=== PATIENT | female | born 1995 | race Caucasian/White ===

== ENCOUNTER → 2016-12-14 | Outpatient (CLI) | payer OTHER ==
[~2016-12-14] MED LIST: LEVE500T53 PO; LORA0.5T PO
== END | disposition home or self-care (01) ==
LOC: CARD 13:11
PROVIDERS: ATTEND Psychiatry & Neurology Neurology
DX: R56.9 Unspecified convulsions (principal)
CPT/HCPCS: 95819

== ENCOUNTER 2018-07-17 11:48 | Emergency (ER) | payer OTHER ==
[~2018-07-17] VITALS: Ht 175.3 cm; Wt 113.2 kg
[2018-07-17 11:50] VITALS: BP 149/68
[2018-07-17] MEDS ORDERED: LIDOCAINE-MPF 1%, 5ML ONE (12:03)
[2018-07-17] MEDS ORDERED: LIDOCAINE-MPF 1%, 5ML INFIL ONE (12:30)
== END 2018-07-17 13:24 | disposition home or self-care (01) ==
LOC: ED 12:48
DX: L05.01 Pilonidal cyst with abscess (principal); G40.909 Epilepsy, unspecified, not intractable, without status epilepticus
CPT/HCPCS: 10080; 99284

== ENCOUNTER 2018-07-19 13:45 | Emergency (ER) | payer SELFPAY ==
[~2018-07-19] VITALS: Ht 175.3 cm; Wt 115.0 kg
[2018-07-19 13:49] VITALS: BP 126/73
== END 2018-07-19 14:51 | disposition home or self-care (01) ==
LOC: ED 14:45
DX: L05.01 Pilonidal cyst with abscess (principal); G40.909 Epilepsy, unspecified, not intractable, without status epilepticus
CPT/HCPCS: 99283

== ENCOUNTER 2018-07-21 17:12 | Emergency (ER) | payer SELFPAY ==
[~2018-07-21] VITALS: Ht 175.3 cm; Wt 115.2 kg
[2018-07-21 17:34] VITALS: BP 134/80
== END 2018-07-21 18:12 | disposition home or self-care (01) ==
LOC: ED 18:08
DX: L05.01 Pilonidal cyst with abscess (principal); G40.909 Epilepsy, unspecified, not intractable, without status epilepticus
CPT/HCPCS: 99282; 99283

== ENCOUNTER 2018-12-16 19:42 | Emergency (ER) | payer SELFPAY ==
[~2018-12-16] VITALS: Ht 175.3 cm; Wt 112.0 kg
[2018-12-16 19:53] VITALS: BP 120/85
[2018-12-16] MEDS ORDERED: ALBUTEROL SULFATE 2.5 MG/3 ML NPPB ONE (20:30)
== END 2018-12-16 21:18 | disposition home or self-care (01) ==
LOC: ED 20:53
DX: H60.501 Unspecified acute noninfective otitis externa, right ear (principal); J15.9 Unspecified bacterial pneumonia; G40.909 Epilepsy, unspecified, not intractable, without status epilepticus
CPT/HCPCS: 71046; 94640; 99283; J7512; J7613

== ENCOUNTER 2019-09-18 12:31 | Emergency (ER) | payer SELFPAY ==
[~2019-09-18] VITALS: Ht 175.3 cm; Wt 112.0 kg
[2019-09-18 12:39] VITALS: BP 124/59
== END 2019-09-18 14:55 | disposition home or self-care (01) ==
LOC: ED 14:27
DX: S90.122A Contusion of left lesser toe(s) without damage to nail, initial encounter (principal); X58.XXXA Exposure to other specified factors, initial encounter; Y93.89 Activity, other specified; Y92.009 Unspecified place in unspecified non-institutional (private) residence as the place of occurrence of the external cause; Y99.8 Other external cause status
CPT/HCPCS: 99283

== ENCOUNTER 2021-02-24 14:53 | Emergency (ER) | payer SELFPAY ==
[~2021-02-24] VITALS: Ht 175.3 cm; Wt 105.7 kg
--- NOTE | 2021-02-24 15:05 | NUR ---
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
[2021-02-24 17:49] LABS: MICROSCOPIC INDICATED
--- NOTE | 2021-02-24 18:43 | NUR ---
DIE MAKER: PT TO ROOM FROM LOBBY
[2021-02-24 19:12] VITALS: BP 116/70
[2021-02-24 19:32] LABS: BASOPHILS % (AUTO) 1 % (0-1); EOSINOPHILS % (AUTO) 0 % (1-7); LYMPHOCYTES % (AUTO) 11 % (22-44); MEAN CORPUSCULAR HEMOGLOBIN 30.3 pg (27.0-34.8); MEAN CORPUSCULAR HGB CONC 33.7 g/dL (32.4-35.8); MEAN PLATELET VOLUME 9.8 fL (7.4-10.4); MONOCYTES % (AUTO) 3 % (2-9); NEUTROPHILS % (AUTO) 86 % (42-75); PLATELET COUNT 280 x10^3/uL (130-400); RED BLOOD COUNT 4.38 x10^6/uL (3.82-5.3); RED CELL DISTRIBUTION WIDTH 13.7 % (9.6-15.2)
[2021-02-24 19:44] LABS: ALANINE AMINOTRANSFERASE 50 U/L (12-78); ALBUMIN 3.8 g/dL (3.4-5.0); ANION GAP 6 mmol/L (5-15); CALCIUM 8.5 mg/dL (8.5-10.1); CHLORIDE 111 mmol/L (98-107); CREATININE 0.78 mg/dL (0.55-1.02)
[2021-02-24 19:48] LABS: ALKALINE PHOSPHATASE 81 U/L (45-117); BILIRUBIN,TOTAL 0.6 mg/dL (0.2-1.0); TOTAL PROTEIN 7.5 g/dL (6.4-8.2)
== END 2021-02-24 20:29 | disposition home or self-care (01) ==
LOC: ED 15:15
DX: S39.012A Strain of muscle, fascia and tendon of lower back, initial encounter (principal); R10.9 Unspecified abdominal pain; X58.XXXA Exposure to other specified factors, initial encounter; Y93.89 Activity, other specified; Y92.89 Other specified places as the place of occurrence of the external cause; Y99.8 Other external cause status
CPT/HCPCS: 36415; 80053; 81001; 84703; 85025; 87086; 99283